=== PATIENT | male | born 2000 | race Caucasian/White ===

== ENCOUNTER 2019-06-10 17:46 | Emergency (ER) | payer OTHER ==
[2019-06-10] MEDS: DEXAMETHASONE 10 MG/ML 1 ML INJ IM (18:18)
[2019-06-10] MEDS: KETOROLAC 15 MG INJ IM (18:18)
[2019-06-10] MEDS: ACETAMINOPHEN 325 MG TAB PO (18:51)
== END 2019-06-10 19:07 | disposition home or self-care (01) ==
LOC: FTE 17:46
DX: J06.9 Acute upper respiratory infection, unspecified (principal)
CPT/HCPCS: 96372; 99284-25

== ENCOUNTER 2019-06-15 08:34 | Emergency (ER) | payer OTHER ==
[2019-06-15] MEDS: ALBUTEROL 0.5% (NEB) 2.5 MG/0.5 ML AMP NEB (09:07)
[2019-06-15] MEDS: METHYLPREDNISOLONE 125 MG INJ IV (09:20)
[2019-06-15] MEDS: ACETAMINOPHEN 500 MG TAB PO (10:37)
== END 2019-06-15 11:16 | disposition home or self-care (01) ==
LOC: E/R 08:34
DX: J40 Bronchitis, not specified as acute or chronic (principal)
CPT/HCPCS: 71045; 94644; 96374; 99284-25